=== PATIENT | female | born 1990 | race Caucasian/White ===

== ENCOUNTER 2021-09-15 09:22 | Inpatient (IN) | payer BC ==
[2021-09-15] VITALS (28 sets, daily range): BP systolic 95–138; BP diastolic 58–90; PULSE 72–102; TEMP 97.8–98.3
[~2021-09-15] VITALS: Ht 167.6 cm; Wt 92.7 kg
[~2021-09-15 09:22] MED LIST: NORCO 325 MG-51 TAB PO; PROPRANOLOL HCL40 MG PO
--- NOTE | 2021-09-15 09:30 | NUR ---
Pt arrived on unit escorted by and with complaints of contractions every "couple minutes" since 0400 this morning with some spotting while in the bathroom. Pt denies any leaking of fluid and reports normal movement. EFM and toco monitors started. Vital signs WNL. Plan of care for labor assessment reviewed with pt and .
[2021-09-15] MEDS ORDERED: PRENATAL (09:49)
[2021-09-15 11:23] LABS: BASO % 0.2 % (0.0-2.0); EOS # 0.1 K/mm3 (0.0-0.7); EOS % 0.4 % (0-4.0); GRAN # 10.7 K/mm3 (1.4-6.5); GRAN % 76.5 % (42.2-75.2); HEMATOCRIT 41.5 % (37.0-47.0); HEMOGLOBIN 14.8 g/dl (12.5-16.0); LYMPH % 14.2 % (20.0-51.0); MEAN CELL VOLUME 93 fl (80.0-100.0); MEAN CORPUSCULAR HEMOGLOBIN 33 pg (27.0-31.0); MEAN CORPUSCULAR HGB CONC 36 g/dl (33.0-37.0); MEAN PLATELET VOLUME 9.5 fl (7.4-10.4); MONO # 1.2 K/mm3 (0.1-0.6); MONO % 8.2 % (1.7-9.3); PLATELET COUNT 228 K/mm3 (130-400); RED BLOOD COUNT 4.48 M/mm3 (4.10-5.30); REDCELL DISTRIBUTION WIDTH-CV 13.3 % (11.5-14.5)
--- NOTE | 2021-09-15 12:14 | NUR ---
3102 PATIENT SITS UP IN BED FOR EPIDURAL PLACEMENT. Bobby HERNANDEZ RECTIFICATION PRINTER AT BEDSIDE. SEE RECTIFICATION PRINTER NOTES FOR QUESTIONS. PATIENT TOLERATES WELL/
--- NOTE | 2021-09-15 14:25 | NUR ---
LATEX FREE CATHETER PLACED WHEN PACHECO PLACED
--- NOTE | 2021-09-15 15:51 | NUR ---
1550 PATIENT FEELING SOME PRESSURE. BISMARK LO NOTED. DR WANG CALLED AND UPDATED AND ORDERS TO CALL WHEN READY FOR DELIVERY
--- NOTE | 2021-09-15 16:25 | NUR ---
1615 SVE /+1 PUSHES WITH ONE CONTRACTION. PATIENT PUSHES WELL. DR WANG CALLED AND UPDATED ON ALL ABOVE INFORMATION. ORDERS TO STOP PUSHING AND ALLOW PATIENT TO LABOR DOWN WHILE HE FINISHES SEEING A PATIENT AT OFFICE.
--- NOTE | 2021-09-15 17:15 | NUR ---
1645 DR WANG HERE FOR DELIVERY, PATIENT PUSHES WELL WITH EACH CONTRACTION. 164 BABY BOY BORN VIA BY DR WANG. CORD CLAMPED AND CUT BY DR WANG AND BABY TO [facility] WITH NURSERY NURSE PER MOMS REQUEST. STRONG CRY NOTED BY BABY. FUNDUS FIRM. 165 PLACENTA SPONTANEOUS DELIVERY AND PITOCIN STARTED AT 333 PER PROTOCOL. PATIENT TOLERATES WELL FUNDUS FIRM MINIMAL BLEEDING. REPAIR DONE BY DR WANG, PATIENT TOLEERATES WELL
--- NOTE | 2021-09-15 17:15 | NUR ---
1630 DR WANG CALLED BACK TO START PUSHING WITH CONTRATIONS AND HE WILL HEAD OVER FOR DELIVERY
[2021-09-16 02:00] VITALS: BP 123/77; PULSE 81
[2021-09-16 05:00] VITALS: BP 118/62; PULSE 79; TEMP 97.9
[2021-09-16 06:43] LABS: HEMATOCRIT 36.2 % (37.0-47.0)
[2021-09-16 06:45] LABS: HEMOGLOBIN 12.8 g/dl (12.5-16.0)
[2021-09-16 07:30] VITALS: BP 98/69; PULSE 91; TEMP 97.6
--- NOTE | 2021-09-16 09:14 | NUR ---
Initial visit; Parents thanked Stone Paver for offering congratulations and God's blessings for the of their son. Stone Paver thanked family for choosing [place].
[2021-09-16 12:30] VITALS: BP 124/85; PULSE 75; TEMP 98.3
[2021-09-16 16:30] VITALS: BP 108/67; PULSE 93; TEMP 98
[2021-09-16 20:00] VITALS: BP 110/78; PULSE 93; TEMP 98.3
[2021-09-17 07:46] VITALS: BP 97/66; PULSE 86; TEMP 98.3
[2021-09-17] MEDS ORDERED: IBU600 MG PO (09:03)
[2021-09-17 09:29] VITALS: BP 112/68; PULSE 76; TEMP 98.1
[2021-09-17 16:03] VITALS: BP 101/73; PULSE 94; TEMP 98.3
== END 2021-09-17 17:10 | disposition home or self-care (01) | DRG 807 ==
LOC: LDRO 09:22 → LDR 10:25 → LDRO 10:55 → LDR 10:56 → OB 21:30
PROVIDERS: Obstetrics & Gynecology; ADMIT Obstetrics & Gynecology
PROC: 10E0XZZ Delivery of Products of Conception, External Approach (ICD-10-PCS; principal; 2021-09-15)
PROC: 0KQM0ZZ Repair Perineum Muscle, Open Approach (ICD-10-PCS; 2021-09-15)
PROC: 10907ZC Drainage of Amniotic Fluid, Therapeutic from Products of Conception, Via Natural or Artificial Opening (ICD-10-PCS; 2021-09-15)
DX: O99.62 Diseases of the digestive system complicating childbirth (principal); Z37.0 Single live birth; K58.9 Irritable bowel syndrome, unspecified; O99.344 Other mental disorders complicating childbirth; F41.9 Anxiety disorder, unspecified; O70.1 Second degree perineal laceration during delivery; O22.43 Hemorrhoids in pregnancy, third trimester; Z3A.40 40 weeks gestation of pregnancy; Z23 Encounter for immunization
CPT/HCPCS: J2590; J2791; J2795; J7120

== ENCOUNTER → 2021-09-21 | Outpatient (CLI) | payer BC ==
[~2021-09-21] MED LIST changes: +IBU600 MG PO; +PRENATAL
--- NOTE | 2021-09-21 15:51 | NUR ---
Pt, Mily Valentino, presents for outpatient consult with 6 day old baby boy, Jose Valentino, and her spouse, Ephraim. Pt states over the weekend Jose started to refuse to latch to the breast. She started pumping and bottle feeding expressed breastmilk. Jose is now drinking 1.5-2.5oz 8 feedings per day. Jose was born on [birth year] and weighed 7#6.5oz (3360 gms). Today his weight is 7#2.2oz (3238 gms), for a 3% wt loss. Pt states once she started bottle feeding his voids and stools increased to WNL. At this time it appears Jose should be able to latch as there are not notable abnormalities to the nipple/areola. Despite LC assistance Jose did not latch. He arched, cried and pushed away from the breast despite milk being expressed into his mouth. He kept his jaw tight, not allowing for a wide gape to get latched. A nipple shield is placed and pt is able to get him to latch after several attempts and gtts of EBM over the nipple shield. After nursing with intermittent effort and several re-latches over about 15 minutes, Jose demonstrates a gain of 12 gms. Pt elects to provided bottle of EBM rather than push Jose to nurse more. Impression: tight jaw, arching and stiffening with attempting latch, beth tie. Jose is able to extend his tongue well but there is an indentation to the tip and a palpable sublingual frenulum. advises pt to consider tongue tie evaluation with Dr. Soria at [facility], and evaluation of tightness with a chiropractor. POC: continue offering breast as desired, continue providing EBM by bottle. May increase volume to 3oz per feeding. Reviewed maintaining milk supply with pumping. F/U: Pt to advise this LC if she desires follow up consult, particularly if she has the tongue tie and tightness evaluated. Keep appt as scheduled with Dr. Vazquez. Questions invited and answered.
== END ==
LOC: LAC 09:46
DX: Z39.2 Encounter for routine postpartum follow-up (principal); Z71.89 Other specified counseling

== ENCOUNTER 2024-07-16 04:01 | Inpatient (IN) | payer BC ==
[~2024-07-16] VITALS: Ht 170.2 cm; Wt 99.5 kg
[2024-07-16] VITALS (19 sets, daily range): BP systolic 93–140; BP diastolic 52–87; PULSE 60–86; TEMP 97.4–98.2
[2024-07-16] MEDS ORDERED: LR 1,000 ML IV SCH (04:30)
[2024-07-16 04:53] LABS: BASO % 0.2 % (0.0-2.0); EOS # 0.1 K/mm3 (0.0-0.7); EOS % 0.9 % (0.0-4.0); GRAN # 8.6 K/mm3 (1.4-6.5); GRAN % 69.4 % (42.2-75.2); HEMATOCRIT 38.7 % (37.0-47.0); HEMOGLOBIN 13.4 g/dl (12.5-16.0); LYMPH # 2.7 K/mm3 (1.2-3.4); MEAN CELL VOLUME 95 fl (80.0-100.0); MEAN CORPUSCULAR HEMOGLOBIN 33 pg (27-31); MEAN CORPUSCULAR HGB CONC 35 g/dl (33.0-37.0); MONO # 0.9 K/mm3 (0.1-0.6); MONO % 6.9 % (1.7-9.3); PLATELET COUNT 181 K/mm3 (130-400); RED BLOOD COUNT 4.06 M/mm3 (4.10-5.30); REDCELL DISTRIBUTION WIDTH-CV 13.2 % (11.5-14.5)
[2024-07-16] MEDS ORDERED: ROPivacaine PF 0.2% 200 ML IV ONE (04:54)
[2024-07-16 05:09] LABS: ALBUMIN 2.7 g/dL (3.5-5.0); BILIRUBIN,TOTAL 0.6 mg/dL (0.2-1.2); CALCIUM 9.1 mg/dL (8.4-10.2); CREATININE, serum 0.61 mg/dL (0.57-1.11)
--- NOTE | 2024-07-16 05:15 | NUR ---
0452: Pt sitting on the side of the bed for epidural placement. RN at the bedside monitoring pt and status. Attempts made to obtain heart rate without success. RN remains at the bedside. Pulse oximetry on pt monitoring maternal heart rate. 0512: Pt repositioned back to bed, with a left tilt after epidural placement. FHT obtained and tracing well.
[2024-07-16] MEDS ORDERED: diphenhydrAMINE 50 MG/ML 1 ML VIAL IV PRN (05:30)
[2024-07-16] MEDS ORDERED: diphenhydrAMINE 25 MG CAP PO PRN (05:30)
[2024-07-16] MEDS ORDERED: Ondansetron 4 MG/2 ML VIAL IV PRN (05:30)
[2024-07-16] MEDS ORDERED: Naloxone 0.4 MG/ML VIAL IV PRN ×2 (05:30→09:00)
[2024-07-16] MEDS ORDERED: ePHEDrine 50 MG/10 ML VIAL IV PRN (05:30)
[2024-07-16] MEDS ORDERED: LR & Oxytocin 500 ML IV ONE (08:13)
[2024-07-16] MEDS ORDERED: Sennosides/Docusate 8.6-50 MG TAB PO SCH (08:48)
[2024-07-16] MEDS ORDERED: Witch Hazel 50% Pads Bulk TUB TP PRN (09:00)
[2024-07-16] MEDS ORDERED: Acetaminophen 500 MG TAB PO PRN (09:00)
[2024-07-16] MEDS ORDERED: Loratadine 10 MG TAB PO PRN (09:00)
[2024-07-16] MEDS ORDERED: Ibuprofen 800 MG TAB PO PRN (09:00)
[2024-07-16] MEDS ORDERED: Magnes Hydrox (MOM) 80 MG/ML 30 ML CUP PO PRN (09:00)
[2024-07-16] MEDS ORDERED: Mag/Al Hydrox/Simeth Susp 30 ML CUP PO PRN (09:00)
[2024-07-16] MEDS ORDERED: Phenylephrine/Mineral Oil/Petrolatum 57 GM TUBE RC PRN (09:00)
[2024-07-16] MEDS ORDERED: Measles/Mumps/Rubella Virus Vaccine Live w Diluent 0.5 ML VIAL SQ SCH (09:00)
--- NOTE | 2024-07-16 09:11 | NUR ---
MD UPDATED ON PT STATUS, HX, SVE, FHTS, CTX PATTERN.
--- NOTE | 2024-07-16 09:21 | NUR ---
SPONTANEOUS VAGINAL DELIVERY OF VIABLE FEMALE WITH MD AND RN X 3 BEDSIDE. PT TOLERATED WELL
--- NOTE | 2024-07-16 12:31 | NUR ---
RN USES SIT TO STAND TO ASSIST PT TO BATHROOM. PT VOIDED AND PERICARE PERFORMED, PT MOVED TO ROOM
--- NOTE | 2024-07-16 14:00 | NUR ---
THIS RN RECEIVES REPORT FROM SANDIP WOMACK COMFORTABLE IN BED IN PT ROOM AT THIS TIME.
[2024-07-16] MEDS ORDERED: oxyCODONE Oral Soln 5 MG/5 ML UD PO PRN (15:00)
[2024-07-16] MEDS ORDERED: oxyCODONE 5 MG TAB PO PRN (15:15)
[2024-07-16] MEDS ORDERED: traZODone 50 MG TAB PO PRN (21:00)
[2024-07-16] MEDS ORDERED: Rho(D) Imm Globulin 1,500 UNITS (300 MCG)/2 ML SYRINGE IV\\IM SCH (23:30)
[2024-07-17 01:50] VITALS: BP 115/72; PULSE 73; TEMP 97.9
[2024-07-17 08:00] VITALS: BP 108/76; PULSE 81; TEMP 97.7
[2024-07-17] MEDS ORDERED: TYLENOL 500MG500 MG PO (10:04)
[2024-07-17] MEDS ORDERED: ROXICODONE 55 MG/TAB PO (10:04)
[2024-07-17] MEDS ORDERED: IBU800 M1 PO (10:05)
--- NOTE | 2024-07-17 10:24 | NUR ---
Initial visit; Patient and her thanked Supervisor Drying for offering congratulations and God's blessings for the of their daughter. Supervisor Drying thanked family for choosing [facility].
== END 2024-07-17 11:45 | disposition home or self-care (01) | DRG 807 ==
LOC: LDRO 04:01 → OB 04:28 → LDR 04:28 → OB 12:00
PROVIDERS: Obstetrics & Gynecology; ADMIT Obstetrics & Gynecology
PROC: 10E0XZZ Delivery of Products of Conception, External Approach (ICD-10-PCS; principal; 2024-07-17)
PROC: 0KQM0ZZ Repair Perineum Muscle, Open Approach (ICD-10-PCS; 2024-07-17)
DX: O99.344 Other mental disorders complicating childbirth (principal); Z37.0 Single live birth; Z3A.39 39 weeks gestation of pregnancy; O26.893 Other specified pregnancy related conditions, third trimester; O76 Abnormality in fetal heart rate and rhythm complicating labor and delivery; F41.9 Anxiety disorder, unspecified; O70.0 First degree perineal laceration during delivery; Z67.41 Type O blood, Rh negative
CPT/HCPCS: J2405; J2590; J2791; J2795; J7120